=== PATIENT | male | born 1990 | race Two or more races ===

== ENCOUNTER 2025-03-20 15:08 | Emergency (ER) | payer OTHER ==
[~2025-03-20] VITALS: Ht 177.8 cm; Wt 86.2 kg
[2025-03-20] MEDS ORDERED: FAMOtidine 10 MG/ML (4ML VIAL) IV ONE (16:30)
[2025-03-20] MEDS ORDERED: 0.9 % SODIUM CHLORIDE 1,000 ML IV ONE (16:30)
[2025-03-20] MEDS ORDERED: MULTIVIT INFUSN,ADULT 4,VIT K 10 ML VIAL IV ONE (16:30)
[2025-03-20] MEDS ORDERED: THIAMINE HCL 100 MG/ML 2 ML VIAL IV ONE (16:30)
[2025-03-20] MEDS ORDERED: ONDANSETRON HCL 2 MG/ML VIAL IV ONE (16:30)
[2025-03-20] MEDS ORDERED: FOLIC ACID 5 MG/ML VIAL IV NR (16:50)
[2025-03-20] MEDS ORDERED: ONDANSETRON HCL 2 MG/ML VIAL ONE (16:56)
[2025-03-20] MEDS ORDERED: THIAMINE HCL 100 MG/ML 2 ML VIAL ONE (16:56)
[2025-03-20] MEDS ORDERED: FAMOTIDINE/PF 20 MG/2 ML VIAL ONE (16:57)
[2025-03-20 17:35] LABS: BASO % 0.4 % (0.1-1.2); EOS # 0.13 (0.04-0.54); EOS % 1.2 % (0.7-7.0); LYMPH # 2.05 (1.18-3.74); LYMPH % 19.2 % (19.3-53.1); MEAN PLATELET VOLUME 11.20 fl (9.4-12.4); MONO # 0.77 (0.24-0.82); MONO % 7.2 % (4.7-12.5); NEUT # 7.65 (1.56-6.13); NEUT % 71.7 % (34.0-71.1); RED CELL DISTRIBUTION WIDTH 12.9 % (11.6-14.4)
[2025-03-20 18:03] LABS: ALT/SGPT 37.0 U/L (12-78); AST/SGOT 32.0 U/L (15-37); BILIRUBIN TOTAL 0.59 mg/dL (0.3-1.2); BUN CREA RATIO 12.0 (7.0-25.0); CREATININE SERUM 1.23 mg/dL (0.70-1.30); GFR 67.77; GLOBULINA 3.9 G/DL (2.4-3.5); GLUCOSE FASTING 100.0 mg/dL (65-100); OSMOLALITY SERUM 280.0 MOSM/KG (275-295)
[2025-03-20 18:06] LABS: URINE APPEARANCE Clear; URINE BILIRRUBIN Negative (NEGATIVE); URINE BLOOD Negative; URINE COLOR Yellow; URINE GLUCOSE Negative (NEGATIVE); URINE KETONE 15 (NEGATIVE); URINE LEUKOCYTE Negative; URINE NITRATE Negative; URINE PROTEIN Trace (NEGATIVE); URINE UROBILINOGEN 1.0 E.U./dl
[2025-03-20 18:10] LABS: URINE BACTERIA 14.3 uL (0.0-1933); URINE CAST 3.95 uL (0.0-1.40); URINE EPITHELIAL CELLS 7.8 uL (0.0-38.8); URINE RBC 4.9 uL (0.0-20.8); URINE WBC 11.3 uL (0.0-23.2)
[2025-03-20] MEDS ORDERED: LORazepam 2 MG/ML VIAL IM ONE (19:15)
[2025-03-20] MEDS ORDERED: CETIRIZINE HCL 5 MG/5 ML ML PO ONE (19:15)
[2025-03-20] MEDS ORDERED: CETIRIZINE HCL 5MG/5ML BLIST.PACK PO ONE (19:56)
[2025-03-20] MEDS ORDERED: LORazepam 2 MG/ML VIAL ONE (19:57)
== END 2025-03-20 22:34 | disposition home or self-care (01) ==
LOC: ER 17:11
PROVIDERS: General Practice
DX: F19.929 Other psychoactive substance use, unspecified with intoxication, unspecified (principal)
CPT/HCPCS: 36415; 71045; 93005; 96365; 96366; 96372; 99283; J2405; J3490 ×5; J7030